=== PATIENT | male | born 1945 | race Caucasian/White ===

== ENCOUNTER 2021-10-05 00:03 | Emergency (ER) | payer OTHER ==
[~2021-10-05] VITALS: Ht 177.8 cm; Wt 63.5 kg
--- NOTE | 2021-10-05 00:04 | NUR ---
CHASE PULLIAM VIA GURNEY TO BED 04.
[2021-10-05 00:05] VITALS: BP 124/88
--- NOTE | 2021-10-05 00:07 | NUR ---
ERMD AT BEDSIDE EVALUATING PT.
[2021-10-05] MEDS ORDERED: HYDROcodone/APAP 5/325 MG 1 TAB TAB PO ONE (00:15)
--- NOTE | 2021-10-05 00:24 | NUR ---
pt taken to xray
--- NOTE | 2021-10-05 00:51 | NUR ---
pt is oriented to name consistently and is inconsistent with situation, time, and place. frequent reorientation done. pt able to make verbal request and follows commands.
[2021-10-05] MEDS ORDERED: LIDOCAINE 5% 1 EA PATCH TP SCH (01:20)
[2021-10-05] MEDS ORDERED: LID5T TP (01:26)
--- NOTE | 2021-10-05 05:39 | NUR ---
BLOOD GLUC 160 FINGER STICK
--- NOTE | 2021-10-05 05:39 | NUR ---
Alvina ying in ED - 10/05/21 at 0540 by JOSHUAPM BLOOD GLUC 160 FINGER STICK
--- NOTE | 2021-10-05 07:17 | NUR ---
Handoff to WILBERT Alfonso. PT is awake throughout shift. Oriented to name. Has periods of confusion but able to verbalize needs. On womack catheter w/ urine draining yellow urine. Repositioned for comfort as tolerated. on 2L of oxygen on 96% SPO2. Awaiting for ambulance for discharge.
--- NOTE | 2021-10-05 07:19 | NUR ---
RECEIVED REPORT FROM WILBERT ARZATE. TRANSFER OF CARE AT THIS TIME.
--- NOTE | 2021-10-05 07:30 | NUR ---
PT AWAKE, ALERT, VERBAL A&OX1 CALM AND COOPERATIVE. VSS WILL CONTINUE TO MONITOR. AWAITING TRANSPORTATION TO [facility] [place] TO BE ARRANGED.
--- NOTE | 2021-10-05 07:59 | NUR ---
GAVE REPORT TO WILBERT MORTON IN [facility] FOR PENDING TRANSFER.
--- NOTE | 2021-10-05 09:00 | NUR ---
PT RESTING IN BED, EYES CLOSED VISIBLE EQUAL RISE AND FALL OF CHEST, VSS WILL CONTINUE TO MONITOR.
--- NOTE | 2021-10-05 10:15 | NUR ---
[facility] TRANSPORTATION AT PT BEDSIDE.
[2021-10-05 10:16] VITALS: BP 110/58
--- NOTE | 2021-10-05 10:20 | NUR ---
Patient discharged with v/s stable. Written and verbal after care instructions given and explained. Patient alert, oriented and verbalized understanding of instructions. DL transport with to long-term. All questions addressed prior to discharge. ID band removed. Patient advised to follow up with PMD. Rx of LIDOCAINE PATCH given. Patient educated on indication of medication including possible reaction and side effects. Opportunity to ask questions provided and answered.
== END 2021-10-05 10:16 ==
LOC: MED 00:03
DX: S70.01XA Contusion of right hip, initial encounter (principal); R03.0 Elevated blood-pressure reading, without diagnosis of hypertension; Z85.9 Personal history of malignant neoplasm, unspecified; Z85.05 Personal history of malignant neoplasm of liver; Z79.899 Other long term (current) drug therapy; W06.XXXA Fall from bed, initial encounter; Y93.89 Activity, other specified; Y92.89 Other specified places as the place of occurrence of the external cause; Y99.8 Other external cause status
CPT/HCPCS: 72100; 72170; 99285

== ENCOUNTER 2021-10-06 16:33 | Emergency (ER) | payer OTHER ==
[~2021-10-06] VITALS: Ht 175.3 cm; Wt 63.0 kg
[~2021-10-06 16:33] MED LIST: LID5T TP
--- NOTE | 2021-10-06 16:36 | NUR ---
[facility]A BLS TO ER BED 12
[2021-10-06 16:42] VITALS: BP 107/79
--- NOTE | 2021-10-06 16:55 | NUR ---
Polst received via fax; comfort measures with 2L via NC noted. Pt SpO2 88% on room air; placed on 2L by NC. SpO2 89%.
--- NOTE | 2021-10-06 17:00 | NUR ---
DR. DUPONT AT PT BEDSIDE FOR FURTHER EVALUATION.
--- NOTE | 2021-10-06 17:29 | NUR ---
CALLED REPORT TO [facility] AND SPOKE WITH WILBERT LOONEY.
--- NOTE | 2021-10-06 17:30 | NUR ---
Patient to be transferred to [facility]. Is being transferred due to transport home. Receiving facility has accepting physician and available space. ER physician has signed transfer form. Patient or responsible libertarian has agreed to transfer and signed form. Patient belongings inventoried and will be sent with patient. Copy of nursing notes, lab reports, EKG, Physicians Orders and X-rays to be sent with patient. Report called to [facility]. [facility] transportation has been called for transfer. ETA is 1730.
--- NOTE | 2021-10-06 17:31 | NUR ---
CALLED [facility] AND SPOKE WITH WILBERT LOONEY. PROVIDED REPORT AND INFORMED PLACE PATIENT ONTO 2L VIA NC AND PT CURRENTLY SATING AT 91%. INFORMED PT IS AT NEURO BASELINE AND NO LABS WERE PERFORMED DUE TO PT DNR/COMFORT CARE MEASURES ONLY
--- NOTE | 2021-10-06 17:55 | NUR ---
Patient discharged with v/s stable. Written and verbal after care instructions given and explained. Patient verbalized understanding. Assisted by sheet move from transportation crew to [facility] to assisted. All questions addressed prior to discharge. Advised to follow up with PMD.
== END 2021-10-06 17:55 ==
LOC: MED 16:33
DX: R06.02 Shortness of breath (principal); Z51.5 Encounter for palliative care; Z85.118 Personal history of other malignant neoplasm of bronchus and lung; Z87.448 Personal history of other diseases of urinary system
CPT/HCPCS: 99283